=== PATIENT | female | born 1990 | race Caucasian/White ===

== ENCOUNTER → 2017-03-11 | Emergency (ER) | payer OTHER ==
[~2017-03-11] VITALS: Ht 162.6 cm; Wt 52.2 kg
[~2017-03-11] MED LIST: CEFUROXIME500 MG PO; KETO10TA2 PO
== END | disposition home or self-care (01) ==
LOC: ER 21:42
DX: R10.2 Pelvic and perineal pain (principal)

== ENCOUNTER 2022-01-12 12:01 | Outpatient (CLI) | payer OTHER | END 2022-01-12 12:03 | disposition home or self-care (01) | LOC: RAD 12:01 | DX: M99.01 Segmental and somatic dysfunction of cervical region (principal); M99.02 Segmental and somatic dysfunction of thoracic region; M99.03 Segmental and somatic dysfunction of lumbar region; M99.04 Segmental and somatic dysfunction of sacral region; M99.05 Segmental and somatic dysfunction of pelvic region ==